=== PATIENT | female | born 1990 | race Caucasian/White ===

== ENCOUNTER 2016-08-21 09:21 | Inpatient (IN) | payer MEDICAID ==
[2016-08-21] VITALS (10 sets, daily range): BP systolic 122–145; BP diastolic 60–80; PULSE 55–90; TEMP 98.2–98.8
[~2016-08-21] VITALS: Ht 167.6 cm; Wt 99.5 kg
[2016-08-21 10:18] LABS: BASO % 0.3 % (0.0-2.0); EOS % 0.2 % (0-4.0); LYMPH # 2.2 (1.2-3.4); LYMPH % 13.9 % (20.0-51.0); MEAN CELL VOLUME 86 fl (80.0-100.0); MEAN CORPUSCULAR HGB CONC 33 g/dl (33.0-37.0); MONO # 0.5 (0.1-0.6); MONO % 3.1 % (1.7-9.3); PLATELET COUNT 198 K/mm3 (130-400); RED BLOOD COUNT 3.86 M/mm3 (4.10-5.30); REDCELL DISTRIBUTION WIDTH-CV 13.8 % (11.5-14.5); WHITE BLOOD COUNT 15.9 K/mm3 (4.8-10.8)
[2016-08-21 10:22] LABS: HEMATOCRIT 33.2 % (37.0-47.0); MEAN CORPUSCULAR HEMOGLOBIN 28 pg (27.0-31.0)
[2016-08-21 11:12] LABS: AMPHETAMINE URINE POSITIVE; BARBITURATES URINE POSITIVE; BENZODIAZEPINES URINE NEGATIVE; BUPRENORPHINE URINE NEGATIVE; METHADONE URINE NEGATIVE; OPIATES URINE POSITIVE; OXYCODONE URINE NEGATIVE; PHENCYCLIDINE URINE NEGATIVE; PROPOXYPHENE URINE NEGATIVE; THC CANNABINOIDS URINE NEGATIVE
[2016-08-21] MEDS ORDERED: PRENATAL MVI (13:36)
[2016-08-22 07:08] LABS: BASO % 0.2 % (0.0-2.0); EOS # 0.1 (0.0-0.7); EOS % 0.5 % (0-4.0); GRAN # 8.7 (1.4-6.5); GRAN % 68.8 % (42.2-75.2); LYMPH # 3.1 (1.2-3.4); LYMPH % 24.5 % (20.0-51.0); MEAN CELL VOLUME 88 fl (80.0-100.0); MEAN CORPUSCULAR HGB CONC 32 g/dl (33.0-37.0); MONO # 0.7 (0.1-0.6); MONO % 5.4 % (1.7-9.3); PLATELET COUNT 187 K/mm3 (130-400); RED BLOOD COUNT 2.87 M/mm3 (4.10-5.30); REDCELL DISTRIBUTION WIDTH-CV 14.1 % (11.5-14.5); WHITE BLOOD COUNT 12.7 K/mm3 (4.8-10.8)
[2016-08-22 07:19] LABS: HEMATOCRIT 25.1 % (37.0-47.0); HEMOGLOBIN 8.1 g/dl (12.5-16.0); MEAN CORPUSCULAR HEMOGLOBIN 28 pg (27.0-31.0)
[2016-08-22 07:40] VITALS: BP 142/59; PULSE 80; TEMP 97.4
[2016-08-22] MEDS ORDERED: PERCOCET 325 MG1 TA2 PO (09:25)
[2016-08-22] MEDS ORDERED: IBU800 M1 PO (09:25)
[2016-08-22 16:28] VITALS: BP 131/75; PULSE 98; TEMP 98
[2016-08-22 20:30] VITALS: BP 146/88; PULSE 98; TEMP 98
[2016-08-23 08:25] VITALS: BP 129/76; PULSE 88; TEMP 98.1
== END 2016-08-23 12:10 | disposition home or self-care (01) | DRG 775 ==
LOC: LDRO 09:21 → LDR 10:03 → OB 18:00
PROVIDERS: Student in an Organized Health Care Education/Training Program
PROC: 10E0XZZ Delivery of Products of Conception, External Approach (ICD-10-PCS; principal; 2016-08-21)
PROC: 0HQ9XZZ Repair Perineum Skin, External Approach (ICD-10-PCS; 2016-08-21)
DX: O99.824 Streptococcus B carrier state complicating childbirth (principal); O09.33 Supervision of pregnancy with insufficient antenatal care, third trimester; O99.324 Drug use complicating childbirth; F15.10 Other stimulant abuse, uncomplicated; F12.10 Cannabis abuse, uncomplicated; O13.4 Gestational [pregnancy-induced] hypertension without significant proteinuria, complicating childbirth; O70.0 First degree perineal laceration during delivery; Z3A.38 38 weeks gestation of pregnancy; Z37.0 Single live birth
CPT/HCPCS: J2540; J2590; J7120